=== PATIENT | female | born 1950 | race Caucasian/White ===

== ENCOUNTER 2023-01-26 18:27 | Inpatient (IN) | payer MEDICARE, BC ==
[~2023-01-26] VITALS: Ht 152.4 cm; Wt 50.8 kg
[2023-01-26] MEDS ORDERED: ONDANSETRON ODT 4 MG TAB.RAPDIS SL ONE (19:00)
[2023-01-26] MEDS ORDERED: MECLIZINE HCL 25 MG TABLET PO ONE (19:00)
[2023-01-26 19:15] LABS: BASOPHILS % (AUTO) 0.3 % (0.0-2.0); EOSINOPHILS % (AUTO) 0.2 % (0.0-7.0); HEMOGLOBIN 14.2 g/dL (10.9-14.3); LYMPHOCYTES # (AUTO) 1.3 K/uL (0.8-4.8); LYMPHOCYTES % (AUTO) 18.3 % (20.5-51.5); MEAN CORPUSCULAR HGB CONC 33 g/dL (32.3-35.6); MONOCYTES # (AUTO) 0.6 K/uL (0.1-1.30); MONOCYTES % (AUTO) 7.8 % (0.0-11.0); NEUTROPHILS # (AUTO) 5.4 K/uL (1.8-8.9); NEUTROPHILS % (AUTO) 73.4 % (38.5-71.5); PLATELET COUNT (AUTO) 232 K/uL (179-408); RED BLOOD CELL COUNT(AUTO) 4.73 MIL/uL (3.63-4.92); RED CELL DISTRIBUTION WIDTH 14.2 % (12.3-17.7); WHITE BLOOD COUNT (AUTO) 7.3 K/uL (3.8-11.8)
[2023-01-26 19:20] LABS: DIFFERENTIAL COMMENT 1
[2023-01-26 19:22] LABS: CALCIUM 9.5 mg/dL (8.5-10.1); CARBON DIOXIDE 28 mmol/L (21-32); CHLORIDE 102 mmol/L (98-107); GLUCOSE 104 mg/dL (74-106); POTASSIUM 3.9 mmol/L (3.5-5.1); SODIUM SERUM 141 mmol/L (136-145); UREA NITROGEN, BLOOD 11 mg/dL (7-18)
[2023-01-26] MEDS ORDERED: ONDANSETRON ODT 4 MG TAB.RAPDIS ONE (19:41)
[2023-01-26] MEDS ORDERED: MECLIZINE HCL 25 MG TABLET ONE (19:41)
[2023-01-26 19:43] LABS: ALANINE AMINOTRANSFERASE 64 U/L (14-59); ALBUMIN 3.5 g/dL (3.4-5.0); ALKALINE PHOSPHATASE 68 U/L (50-136); ASPARTATE AMINOTRANSFERASE 25 U/L (15-37); BILIRUBIN,DIRECT 0.1 mg/dL (0.0-0.2); BILIRUBIN,TOTAL 0.7 mg/dL (0.2-1.0); NT-PRO BNP 109 pg/mL (0-125); TOTAL PROTEIN, SERUM 6.9 g/dL (6.4-8.2)
[2023-01-26] MEDS ORDERED: IOHEXOL 350 100 ML INFUS..BTL ONE (20:22)
[2023-01-26] MEDS ORDERED: SWABABLE VALVE TRANSFER SET EA MC ONE (20:22)
[2023-01-26] MEDS ORDERED: IV NORMAL SALINE 250 ML IV ONE (20:23)
[2023-01-26] MEDS ORDERED: ONDANSETRON 4 MG/2 ML VIAL IV ONE (21:15)
[2023-01-26] MEDS ORDERED: ONDANSETRON 4 MG/2 ML VIAL ONE (21:26)
[2023-01-26] MEDS ORDERED: ACETAMINOPHEN 325 MG TABLET PO PRN (23:00)
[2023-01-26] MEDS ORDERED: TEMAZEPAM 15 MG CAPSULE PO PRN (23:00)
[2023-01-26] MEDS ORDERED: ONDANSETRON 4 MG/2 ML VIAL IV PRN (23:00)
[2023-01-27 00:33] VITALS: BP 109/54; TEMP 97.7; O2SAT 96
[2023-01-27 04:18] VITALS: BP 124/64; TEMP 97.9; O2SAT 95
[2023-01-27] MEDS: PANTOPRAZOLE SODIUM 40 MG TABLET.DR PO SCH (07:00)
[2023-01-27] MEDS ORDERED: CLONAZEPAM 1 MG TABLET PO PRN (07:15)
[2023-01-27 07:40] LABS: BASOPHILS % (AUTO) 0.1 % (0.0-2.0); EOSINOPHILS % (AUTO) 0.1 % (0.0-7.0); HEMATOCRIT 43.6 % (31.2-41.9); HEMOGLOBIN 14.8 g/dL (10.9-14.3); LYMPHOCYTES % (AUTO) 14.6 % (20.5-51.5); MEAN CORPUSCULAR HEMOGLOBIN 30.6 uug (24.7-32.8); MEAN CORPUSCULAR HGB CONC 34 g/dL (32.3-35.6); MEAN CORPUSCULAR VOLUME 90.5 fL (75.5-95.3); MONOCYTES # (AUTO) 0.6 K/uL (0.1-1.30); MONOCYTES % (AUTO) 9.5 % (0.0-11.0); NEUTROPHILS # (AUTO) 5.2 K/uL (1.8-8.9); NEUTROPHILS % (AUTO) 75.7 % (38.5-71.5); PLATELET COUNT (AUTO) 219 K/uL (179-408); RED BLOOD CELL COUNT(AUTO) 4.82 MIL/uL (3.63-4.92); WHITE BLOOD COUNT (AUTO) 6.8 K/uL (3.8-11.8)
[2023-01-27 07:45] LABS: DIFFERENTIAL COMMENT 1
[2023-01-27] MEDS ORDERED: LORAZEPAM 2 MG/1 ML VIAL IV ONE (08:30)
[2023-01-27 08:40] LABS: ALANINE AMINOTRANSFERASE 52 U/L (14-59); ALBUMIN 3.7 g/dL (3.4-5.0); ALKALINE PHOSPHATASE 77 U/L (50-136); ASPARTATE AMINOTRANSFERASE 19 U/L (15-37); BILIRUBIN,TOTAL 1.1 mg/dL (0.2-1.0); CALCIUM 9.4 mg/dL (8.5-10.1); CARBON DIOXIDE 27 mmol/L (21-32); CHLORIDE 103 mmol/L (98-107); CHOLESTEROL 236 mg/dL (<200); CREATININE 0.9 mg/dL (0.6-1.3); GLUCOSE 111 mg/dL (74-106); HDL CHOLESTEROL 48 mg/dL (40-60); MAGNESIUM 2.5 mg/dL (1.8-2.4); PHOSPHOROUS 4.3 mg/dL (2.5-4.9); POTASSIUM 4.3 mmol/L (3.5-5.1); SODIUM SERUM 140 mmol/L (136-145); TOTAL PROTEIN, SERUM 7.3 g/dL (6.4-8.2); TRIGLYCERIDES 185 MG/DL (30-150); UREA NITROGEN, BLOOD 10 mg/dL (7-18)
[2023-01-27] MEDS: ASPIRIN EC 81 MG TABLET.DR PO SCH (08:55)
[2023-01-27] MEDS ORDERED: FLUO40CA49 PO (10:12)
[2023-01-27] MEDS ORDERED: SENN-261 PO (10:18)
[2023-01-27] MEDS ORDERED: PROP10TA10 PO (10:18)
[2023-01-27] MEDS ORDERED: LEVO25TA9 PO (10:18)
[2023-01-27] MEDS ORDERED: METH18TA PO (10:18)
[2023-01-27] MEDS ORDERED: CLON0.5T PO (10:18)
[2023-01-27] MEDS ORDERED: LIOT5TAB11 PO (10:18)
[2023-01-27] MEDS ORDERED: LACT10SO58 PO (10:18)
[2023-01-27] MEDS ORDERED: LACTULOSE 20 G/30 ML LIQUID UDC PO ONE (11:00)
[2023-01-27] MEDS ORDERED: PROPRANOLOL HCL 10 MG TABLET PO PRN (11:30)
[2023-01-27] MEDS ORDERED: FLUOXETINE HCL 20 MG CAPSULE PO SCH (11:30)
[2023-01-27] MEDS: CLONAZEPAM 1 MG TABLET PO PRN ×3 (11:51→20:21)
[2023-01-27 11:54] VITALS: BP 121/63; TEMP 98.5; O2SAT 93
[2023-01-27] MEDS ORDERED: LIOTHYRONINE SODIUM 5 MCG TABLET PO ONE (12:00)
[2023-01-27] MEDS ORDERED: LEVOTHYROXINE SODIUM 25 MCG TABLET PO ONE (12:00)
[2023-01-27] MEDS ORDERED: SENNOSIDES 1 TABLET PO SCH (12:00)
[2023-01-27] MEDS: FLUOXETINE HCL 20 MG CAPSULE PO SCH (13:45)
[2023-01-27] MEDS ORDERED: SENNOSIDES 1 TABLET PO ONE ×2 (15:00→20:30)
[2023-01-27 20:00] VITALS: BP 115/52; TEMP 98.3; O2SAT 97
[2023-01-27] MEDS: LACTULOSE 20 G/30 ML LIQUID UDC PO SCH (20:21)
[2023-01-28] VITALS: BP 139/78; TEMP 98.1; O2SAT 96
[2023-01-28] MEDS: CLONAZEPAM 1 MG TABLET PO PRN ×3 (00:51→09:13)
[2023-01-28 04:00] VITALS: BP 128/78; TEMP 98.2; O2SAT 96
[2023-01-28] MEDS: PANTOPRAZOLE SODIUM 40 MG TABLET.DR PO SCH (06:19)
[2023-01-28] MEDS ORDERED: LIOTHYRONINE SODIUM 5 MCG TABLET PO SCH (07:00)
[2023-01-28] MEDS ORDERED: LEVOTHYROXINE SODIUM 25 MCG TABLET PO SCH (07:00)
[2023-01-28] MEDS ORDERED: FLUOXETINE HCL 20 MG CAPSULE PO SCH (09:00)
[2023-01-28] MEDS: LACTULOSE 20 G/30 ML LIQUID UDC PO SCH ×2 (09:00→09:19)
[2023-01-28] MEDS: ASPIRIN EC 81 MG TABLET.DR PO SCH (09:14)
[2023-01-28] MEDS: SENNOSIDES 1 TABLET PO SCH ×2 (09:15→17:58)
[2023-01-28] MEDS: FLUOXETINE HCL 20 MG CAPSULE PO SCH (09:15)
[2023-01-28 12:00] VITALS: BP 120/69; TEMP 98; O2SAT 95
[2023-01-28] MEDS ORDERED: LORA-259 PO (12:21)
[2023-01-28] MEDS ORDERED: BUSP5TAB3 PO (12:21)
[2023-01-28] MEDS: busPIRone 5 MG TABLET PO SCH ×2 (13:33→16:29)
[2023-01-28] MEDS: LORAZEPAM 1 MG TABLET PO SCH ×2 (13:34→16:29)
[2023-01-28 16:00] VITALS: BP 124/64; TEMP 98.1; O2SAT 97
[2023-01-28 17:56] VITALS: BP 129/66
[2023-01-29] MEDS ORDERED: METHYLPHENIDATE 18 MG PO SCH (09:00)
== END 2023-01-28 21:45 | disposition home or self-care (01) | DRG 880 ==
LOC: ER 18:29 → TELE3 23:07 → MEDSURG3 01-28 08:00
PROVIDERS: ADMIT Nurse Practitioner Acute Care; ATTEND Nurse Practitioner Acute Care
DX: F41.1 Generalized anxiety disorder (principal); R45.851 Suicidal ideations; F41.0 Panic disorder [episodic paroxysmal anxiety]; E03.9 Hypothyroidism, unspecified; E78.5 Hyperlipidemia, unspecified; R07.89 Other chest pain; R53.1 Weakness; Z74.09 Other reduced mobility; R42 Dizziness and giddiness; Z88.0 Allergy status to penicillin; Z88.2 Allergy status to sulfonamides; F32.9 Major depressive disorder, single episode, unspecified; I35.1 Nonrheumatic aortic (valve) insufficiency
CPT/HCPCS: 36415; 70450; 71045; 83735; 84100; 84443; 84484; 85025; 85730; 93005; 93307; A4663; A6209; G0378; J2060; J2405; J8597; Q0162; Q9967